=== PATIENT | male | born 2000 | race Hispanic/Latino ===

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

== ENCOUNTER 2018-02-17 19:31 | Emergency (ER) | payer SELFPAY ==
[2018-02-17] MEDS ORDERED: Lidocaine 1% 20 ML MDV ONE (21:03)
[2018-02-17] MEDS ORDERED: HYDROcodone/Acetaminophen 5/325 mg Tablet ONE (21:03)
[2018-02-17] MEDS ORDERED: cefTRIAXone\\ROCEPHIN 1 GM VIAL ONE (21:03)
== END 2018-02-17 21:30 | disposition home or self-care (01) ==
LOC: NAV ERS 19:31
DX: L73.2 Hidradenitis suppurativa (principal); L66.3 Perifolliculitis capitis abscedens; F41.9 Anxiety disorder, unspecified; F32.9 Major depressive disorder, single episode, unspecified
CPT/HCPCS: 96372; J0696; J2001

== ENCOUNTER 2018-05-29 19:57 | Emergency (ER) | payer SELFPAY | END 2018-05-29 21:38 | disposition home or self-care (01) | LOC: NAV ERS 19:57 | DX: Z48.817 Encounter for surgical aftercare following surgery on the skin and subcutaneous tissue (principal); F41.9 Anxiety disorder, unspecified; F32.9 Major depressive disorder, single episode, unspecified | CPT/HCPCS: 99282 ==

== ENCOUNTER 2018-06-01 20:32 | Emergency (ER) | payer SELFPAY | END 2018-06-01 22:55 | disposition home or self-care (01) | LOC: NAV ERS 20:32 | DX: Z48.817 Encounter for surgical aftercare following surgery on the skin and subcutaneous tissue (principal); F41.9 Anxiety disorder, unspecified; F32.9 Major depressive disorder, single episode, unspecified | CPT/HCPCS: 99282 ==

== ENCOUNTER 2018-06-26 17:33 | Emergency (ER) | payer SELFPAY ==
[2018-06-26] MEDS ORDERED: Lidocaine 1% w/Epinephrine 1:100K 30 ML VIAL ONE (17:54)
== END 2018-06-26 18:30 | disposition home or self-care (01) ==
LOC: NAV ERS 17:33
DX: L73.2 Hidradenitis suppurativa (principal); F41.9 Anxiety disorder, unspecified; F32.9 Major depressive disorder, single episode, unspecified
CPT/HCPCS: 10060; 87070; 87077; 87186; 87205; J2001

== ENCOUNTER 2018-10-07 20:29 | Emergency (ER) | payer SELFPAY ==
[2018-10-07] MEDS ORDERED: Lidocaine 1% (PF) 30 ML VIAL ONE ×2 (21:18→21:19)
== END 2018-10-07 22:05 | disposition home or self-care (01) ==
LOC: NAV ERS 20:29
DX: L02.214 Cutaneous abscess of groin (principal); F41.9 Anxiety disorder, unspecified; F32.9 Major depressive disorder, single episode, unspecified
CPT/HCPCS: 10061; J2001

== ENCOUNTER 2020-02-11 13:37 | Emergency (ER) | payer SELFPAY | END 2020-02-11 14:18 | disposition home or self-care (01) | LOC: NAV ERS 13:37 | DX: L02.215 Cutaneous abscess of perineum (principal); L73.2 Hidradenitis suppurativa; F41.9 Anxiety disorder, unspecified; F32.9 Major depressive disorder, single episode, unspecified | CPT/HCPCS: 10060; 87070; 87205 ==

== ENCOUNTER 2020-09-11 16:26 | Emergency (ER) | payer SELFPAY ==
[2020-09-11] MEDS ORDERED: Sulfameth/Trimethoprim DS 800-160mg TAB ONE (16:59)
== END 2020-09-11 16:55 | disposition home or self-care (01) ==
LOC: NAV ERS 16:26
DX: L03.116 Cellulitis of left lower limb (principal)
CPT/HCPCS: 99283

== ENCOUNTER 2021-01-24 15:53 | Emergency (ER) | payer SELFPAY ==
[2021-01-24] MEDS ORDERED: traMADol HCl 50 MG TAB ONE (16:27)
[2021-01-24] MEDS ORDERED: Ibuprofen 200 MG TAB ONE (16:27)
== END 2021-01-24 17:02 | disposition home or self-care (01) ==
LOC: NAV ERS 15:53
DX: S93.402A Sprain of unspecified ligament of left ankle, initial encounter (principal); X50.1XXA Overexertion from prolonged static or awkward postures, initial encounter

== ENCOUNTER 2021-04-24 22:10 | Emergency (ER) | payer SELFPAY ==
[2021-04-24] MEDS ORDERED: Lidocaine 1% w/Epinephrine 1:100K 20 ML VIAL ONE (22:26)
[2021-04-24] MEDS ORDERED: Clindamycin 150 MG CAP ONE (22:43)
[2021-04-24] MEDS ORDERED: Ibuprofen 200 MG TAB ONE (22:43)
== END 2021-04-24 22:57 | disposition home or self-care (01) ==
LOC: NAV ERS 22:10
DX: L02.415 Cutaneous abscess of right lower limb (principal); L03.115 Cellulitis of right lower limb
CPT/HCPCS: 10060

== ENCOUNTER 2021-09-13 16:05 | Emergency (ER) | payer SELFPAY ==
[2021-09-13] MEDS ORDERED: Ketorolac Tromethamine 30 MG/ML VIAL ONE (16:26)
[2021-09-13 16:48] LABS: #Basophils 0.1 thou/uL (0.0-0.2); #Eosinphils 0.2 thou/uL (0.0-0.7); #Lymphocytes 2.3 thou/uL (1.20-3.40); #Monocytes 0.6 thou/uL (0.11-0.59); #Neutrophils 6.9 thou/uL (1.40-6.50); %Basophils 0.9 % (0.0-1.0); %Eosinophils 1.9 % (0.0-10.0); %Lymphocytes 22.7 % (21.0-51.0); %Monocytes 6.2 % (0.0-10.0); %Neutrophils 68.3 % (42.0-75.0); Hemoglobin 15.9 g/dL (14.0-18.0); Mean Corpuscular HGB CONC 32.8 g/dL (32.0-36.0); Mean Corpuscular Volume 94.7 fL (78.0-98.0); Mean Platelet Volume 11.3 fL (7.4-10.4); Platelet Count 186 thou/uL (130-400); RBC Distribution Width 11.5 % (11.5-14.5); Red Blood Cell (RBC) Count 5.11 mill/uL (4.70-6.10); White Blood Cell (WBC) Count 10.1 thou/uL (4.8-10.8)
[2021-09-13 17:03] LABS: ALT (SGPT) 49 U/L (8-55); AST (SGOT) 29 U/L (5-34); Albumin 4.2 g/dL (3.5-5.0); Alkaline Phosphatase 87 U/L (40-110); Anion Gap 14 mmol/L (10-20); BUN (Urea Nitrogen) 9 mg/dL (8.9-20.6); Bilirubin, Total 1.3 mg/dL (0.2-1.2); Calc. Creatinine Clearance 0 mL/min (70-130); Calcium 9.4 mg/dL (7.8-10.44); Carbon Dioxide 23 mmol/L (22-29); Chloride 105 mmol/L (98-107); Globulin 3.6 g/dL (2.4-3.5); Glucose 98 mg/dL (70-105); Lipase 31 U/L (8-78); Protein, Total 7.8 g/dL (6.0-8.3); Sodium 138 mmol/L (136-145)
== END 2021-09-13 17:40 | disposition home or self-care (01) ==
LOC: NAV ERS 16:05
DX: S39.011A Strain of muscle, fascia and tendon of abdomen, initial encounter (principal); X50.0XXA Overexertion from strenuous movement or load, initial encounter; I10 Essential (primary) hypertension; E66.9 Obesity, unspecified; F17.210 Nicotine dependence, cigarettes, uncomplicated
CPT/HCPCS: 36415; 74176; 80053; 83690; 85025; 96372; J1885

== ENCOUNTER 2022-07-29 11:17 | Emergency (ER) | payer SELFPAY ==
[2022-07-29 11:54] LABS: Bilirubin Negative (Negative); Blood, Urine Negative (Negative); Clarity Clear (Clear); Glucose, Urine (Dipstick) Negative (Negative); Ketone, Urine Negative (Negative); Leukocyte Negative (Negative); Nitrite Negative (Negative); Protein, Urine (Dipstick) Negative (Neg-Trace); Urobilinogen 0.2 mg/dL (Less than 2); pH, Urine 7.5 (5.0-9.0)
[2022-07-29 12:04] LABS: #Basophils 0.1 thou/uL (0.0-0.2); #Eosinphils 0.2 thou/uL (0.0-0.7); #Lymphocytes 1.8 thou/uL (1.20-3.40); #Monocytes 0.5 thou/uL (0.11-0.59); #Neutrophils 5.4 thou/uL (1.40-6.50); %Eosinophils 3.1 % (0.0-10.0); %Lymphocytes 22.7 % (21.0-51.0); %Monocytes 6.3 % (0.0-10.0); %Neutrophils 66.9 % (42.0-75.0); Hemoglobin 16.3 g/dL (14.0-18.0); Mean Corpuscular HGB CONC 33.5 g/dL (32.0-36.0); Mean Corpuscular Hemoglobin 31.6 pg (27.0-31.0); Mean Corpuscular Volume 94.5 fl (78.0-98.0); Mean Platelet Volume 11.3 fL (7.4-10.4); Platelet Count 173 thou/uL (130-400); RBC Distribution Width 11.1 % (11.5-14.5); Red Blood Cell (RBC) Count 5.17 mill/uL (4.70-6.10)
[2022-07-29 12:22] LABS: ALT (SGPT) 50 U/L (8-55); AST (SGOT) 35 U/L (5-34); Albumin 4.5 g/dL (3.5-5.0); Alkaline Phosphatase 99 U/L (40-110); Anion Gap 15 mmol/L (10-20); BUN (Urea Nitrogen) 9 mg/dL (8.9-20.6); Bilirubin, Total 1.7 mg/dL (0.2-1.2); Calc. Creatinine Clearance 0 mL/min (70-130); Calcium 9.3 mg/dL (7.8-10.44); Carbon Dioxide 26 mmol/L (22-29); Chloride 102 mmol/L (98-107); Estimated GFR 133; Globulin 3.4 g/dL (2.4-3.5); Glucose 130 mg/dL (70-105); Lipase 37 U/L (8-78); Potassium 3.9 mmol/L (3.5-5.1); Protein, Total 7.9 g/dL (6.0-8.3); Sodium 139 mmol/L (136-145)
[2022-07-29] MEDS ORDERED: Pantoprazole 40 MG VIAL ONE (13:13)
[2022-07-29] MEDS ORDERED: Lidocaine Viscous Sol 2% 15 ml UD Cup ONE (13:13)
[2022-07-29] MEDS ORDERED: Mag-Al Plus 1200 MG/1200 MG/120 MG/30 ML UDCUP ONE (13:13)
== END 2022-07-29 14:00 | disposition home or self-care (01) ==
LOC: NAV ERS 11:17
DX: R10.13 Epigastric pain (principal); K29.00 Acute gastritis without bleeding; I10 Essential (primary) hypertension; E66.9 Obesity, unspecified; F17.210 Nicotine dependence, cigarettes, uncomplicated
CPT/HCPCS: 74176; 80053; 81003; 83690; 85025; 93005; 96374; C9113

== ENCOUNTER 2023-07-27 12:54 | Emergency (ER) | payer SELFPAY ==
[2023-07-27] MEDS ORDERED: Lorazepam 0.5 MG TAB ONE ×2 (13:49)
[2023-07-27 13:50] LABS: #Basophils 0.1 thou/uL (0.0-0.2); #Eosinphils 0.1 thou/uL (0.0-0.7); #Lymphocytes 1.5 thou/uL (1.20-3.40); #Monocytes 0.6 thou/uL (0.11-0.59); #Neutrophils 6.9 thou/uL (1.40-6.50); %Eosinophils 0.8 % (0.0-10.0); %Monocytes 6.8 % (0.0-10.0); %Neutrophils 75.4 % (42.0-75.0); Hematocrit 50.7 % (42.0-52.0); Hemoglobin 17.2 g/dL (14.0-18.0); Mean Corpuscular HGB CONC 33.9 g/dL (32.0-36.0); Mean Corpuscular Hemoglobin 30.7 pg (27.0-31.0); Mean Corpuscular Volume 90.6 fl (78.0-98.0); Platelet Count 168 10x3/uL (130-400); RBC Distribution Width 11.4 % (11.5-14.5); White Blood Cell (WBC) Count 9.1 10x3/uL (4.8-10.8)
[2023-07-27] MEDS ORDERED: Lorazepam 2 MG/ML VIAL ONE (13:50)
[2023-07-27 14:12] LABS: ALT (SGPT) 56 U/L (8-55); AST (SGOT) 26 U/L (5-34); Acetaminophen Less than 10 mcg/mL (10.0-30.0); Albumin 4.4 g/dL (3.5-5.0); Alcohol Less than 10.0 mg/dL (Less than 10); Alkaline Phosphatase 103 U/L (40-110); Anion Gap 14 mmol/L (10-20); BUN (Urea Nitrogen) 6 mg/dL (8.9-20.6); Bilirubin, Total 1.2 mg/dL (0.2-1.2); Calc. Creatinine Clearance 0 mL/min (70-130); Calcium 9.3 mg/dL (7.8-10.44); Carbon Dioxide 25 mmol/L (22-29); Chloride 103 mmol/L (98-107); Estimated GFR 129; Globulin 3.5 g/dL (2.4-3.5); Glucose 140 mg/dL (70-105); Potassium 4.1 mmol/L (3.5-5.1); Protein, Total 7.9 g/dL (6.0-8.3); Salicylate Less than 8.0 mg/dL (15.0-30.0); Sodium 138 mmol/L (136-145); Troponin I 0.013 ng/mL (< 0.028)
[2023-07-27 15:03] LABS: Phencyclidine (PCP) Not Detected (NotDetected); THC/Cannabinoid Screen Detected (NotDetected)
[2023-07-27 15:04] LABS: Amphetamine Not Detected (NotDetected); Barbiturates Screen Not Detected (NotDetected); Benzodiazepine Screen Not Detected (NotDetected); Cocaine Metabolite Screen Not Detected (NotDetected); Methadone Not Detected (NotDetected); Methamphetamine Not Detected (NotDetected); Opiate Screen Not Detected (NotDetected); Oxycodone Screen Not Detected (NotDetected); Tricyclic Screen Not Detected (NotDetected)
[2023-07-27] MEDS ORDERED: Ondansetron PF 4 MG/2 ML Vial ONE (16:59)
[2023-07-27] MEDS ORDERED: Ondansetron ODT 4 MG TAB ONE (17:02)
[2023-07-27] MEDS ORDERED: hydrOXYzine 25 MG TAB ONE (17:29)
[2023-07-27] MEDS ORDERED: Sertraline 25 MG TAB ONE (17:29)
== END 2023-07-27 18:25 | disposition home or self-care (01) ==
LOC: NAV ERS 12:54
DX: F41.1 Generalized anxiety disorder (principal); R11.2 Nausea with vomiting, unspecified; I10 Essential (primary) hypertension
CPT/HCPCS: 36416; 80053; 80306; 80307; 84443; 84484; 85025; 93005; 96374; J2060; J2405; Q0162

== ENCOUNTER 2023-08-30 18:18 | Emergency (ER) | payer SELFPAY ==
[2023-08-30 18:38] LABS: Clarity Clear (Clear); Specific Gravity, Urine 1.015 (1.005-1.030)
[2023-08-30 18:45] LABS: CAUTI Indications for Culture Dysuria,urgency,freq; RBC/HPF 0-3 HPF (0-3); Squamous Epithelial 0-3 HPF (0-3); WBC/HPF 0-3 HPF (0-3)
[2023-08-30 18:47] LABS: Urine Culture Reflex No No
[2023-08-30] MEDS ORDERED: Phenazopyridine HCl 95 MG TAB ONE (19:01)
== END 2023-08-30 19:07 | disposition home or self-care (01) ==
LOC: NAV ERS 18:18
DX: R30.0 Dysuria (principal); F41.9 Anxiety disorder, unspecified; I10 Essential (primary) hypertension
CPT/HCPCS: 81001; 81015; 99283

== ENCOUNTER 2023-11-04 19:36 | Emergency (ER) | payer SELFPAY ==
[2023-11-04] MEDS ORDERED: Lidocaine 1% w/Epinephrine 1:100K 20 ML VIAL ONE (20:17)
[2023-11-04] MEDS ORDERED: Sulfameth/Trimethoprim DS 800-160mg TAB ONE (20:17)
== END 2023-11-04 20:43 | disposition home or self-care (01) ==
LOC: NAV ERS 19:36
DX: L02.31 Cutaneous abscess of buttock (principal); L03.317 Cellulitis of buttock; I10 Essential (primary) hypertension
CPT/HCPCS: 10060; 87070; 87205

== ENCOUNTER 2023-11-06 19:27 | Emergency (ER) | payer SELFPAY ==
[2023-11-06] MEDS ORDERED: Lidocaine 1% w/Epinephrine 1:100K 20 ML VIAL ONE (20:30)
== END 2023-11-06 21:15 | disposition home or self-care (01) ==
LOC: NAV ERS 19:27
DX: L02.31 Cutaneous abscess of buttock (principal); I10 Essential (primary) hypertension
CPT/HCPCS: 10060